=== PATIENT | male | born 1940 | race Caucasian/White ===

== ENCOUNTER → 2018-03-06 | Outpatient (CLI) | payer MEDICARE, OTHER ==
[~2018-03-06] MED LIST: ASPI325; Aspirin EC81 MG PO; CARV3.125; FISH1000; LOVA40; MECL25 PO; MULVITMINF; ROSU10TA
== END | disposition home or self-care (01) ==
LOC: PLD 07:57 → LAB SHORT 07:57
DX: D04.22 Carcinoma in situ of skin of left ear and external auricular canal (principal); L57.0 Actinic keratosis
CPT/HCPCS: 88305

== ENCOUNTER → 2020-02-24 | Outpatient (CLI) | payer MEDICARE, OTHER | END | disposition home or self-care (01) | LOC: LAB SHORT 13:43 → PLD 13:43 | DX: D22.61 Melanocytic nevi of right upper limb, including shoulder (principal); L57.0 Actinic keratosis | CPT/HCPCS: 88305; 88342 ==